=== PATIENT | female | born 1955 | race Caucasian/White ===

== ENCOUNTER → 2017-08-10 | Outpatient (CLI) | payer OTHER ==
[~2017-08-10] MED LIST: CHOL1CAP24 PO; HYDR-3516 PO; PRIL20TA2 PO; ZOFR4TAB PO
[2017-08-10 11:21] LABS: BASOPHIL % 0.3 % (0.0-2.0); EOSINOPHIL # 0.1 TH/MM3 (0-0.4); EOSINOPHIL % 1.5 % (0.0-4.0); HEMATOCRIT 41.3 % (35.0-46.0); HEMOGLOBIN 13.7 GM/DL (11.6-15.3); LYMPH % 35.6 % (9.0-44.0); MEAN CELL VOLUME 92.9 FL (80.0-100.0); MEAN CORPUSCULAR HEMOGLOBIN 30.9 PG (27.0-34.0); MEAN CORPUSCULAR HGB CONC 33.3 % (32.0-36.0); MEAN PLATELET VOLUME 11.1 FL (7.0-11.0); MONOCYTE # 0.6 TH/MM3 (0-0.9); NEUT % 51.6 % (16.0-70.0); PLATELET COUNT 204 TH/MM3 (150-450); RED BLOOD COUNT 4.45 MIL/MM3 (4.00-5.30); WHITE BLOOD COUNT 5.7 TH/MM3 (4.0-11.0)
[2017-08-10 12:08] LABS: ALBUMIN 3.9 GM/DL (3.4-5.0); AST (GOT) 21 U/L (15-37); BICARBONATE 29.5 MEQ/L (21.0-32.0); BLOOD UREA NITROGEN 14 MG/DL (7-18); CALCIUM 9.3 MG/DL (8.5-10.1); CHLORIDE 104 MEQ/L (98-107); CREATININE 1.01 MG/DL (0.50-1.00); GLOMERULAR FILTRATION RATE 56 ML/MIN (>89); GLUCOSE,FASTING 85 MG/DL (74-99); SODIUM (NA) 140 MEQ/L (136-145)
[2017-08-10 12:09] LABS: ALT (GPT) 28 U/L (10-53)
[2017-08-10 12:12] LABS: ALKALINE PHOSPHATASE 61 U/L (45-117); TOTAL BILIRUBIN ADULT 0.4 MG/DL (0.2-1.0); TOTAL PROTEIN 7.5 GM/DL (6.4-8.2)
--- NOTE | 2017-08-10 14:51 | EKG ---
Date Performed: 08/10/2017 Time Performed: 10:34:18 PTAGE: 62 years EKG: Sinus rhythm . Poor R wave progression Nonspecific ST-T wave changes Low QRS voltages in precordial leads Borderli ne ECG NO PREVIOUS TRACING DOCTOR: Edvin Rizzo Interpretating Date/Time 08/10/2017 14:50:02
== END ==
LOC: CPRE 10:11
PROVIDERS: ATTEND Orthopaedic Surgery
DX: Z01.812 Encounter for preprocedural laboratory examination (principal); Z01.810 Encounter for preprocedural cardiovascular examination; R94.31 Abnormal electrocardiogram [ECG] [EKG]
CPT/HCPCS: 36415; 80053; 85025; 93005

== ENCOUNTER → 2017-08-17 | Day surgery (SDC) | payer OTHER ==
[~2017-08-17] VITALS: Ht 165.1 cm; Wt 98.2 kg
[~2017-08-17] MED LIST changes: +ACETAMINOPHEN/HYDROcodone 325 MG/5 MG TAB PO PRN; +CHLORHEXIDINE GLUCONATE 2 % 1 PACK (2 CLOTHS) TOPICAL PRN; +DEXAMETHASONE SOD PHOS 4 MG/ML VIAL IV ONE; +DO NOT ADM ANY ANTICOAGULANT DRUGS PRN; +KETOROLAC TROMETHAMINE 30 MG/ML (IVP) VIAL IVP ONE; +LACTATED RINGER'S 1000 ML IV PRN; +LIDOCAINE HCL 1% PF 5 ML SYRINGE OTHER ONE; +METOPROLOL TARTRATE 25 MG TAB PO PRN; +MIDAZOLAM HCL 2 MG/2 ML VIAL ONE; +MORPHINE SULFATE 4 MG/ML INJ IV PUSH PRN; +ONDANSETRON HCL 4 MG/2 ML VIAL IV ONE; +ONDANSETRON HCL 4 MG/2 ML VIAL IV PUSH PRN; +POVIDONE IODINE 5% (ANTISEPSIS KIT) 4 APPLICATIONS EACH NARE PRN; +POVIDONE IODINE 7.5% SCRUB 118 ML BOTTLE TOPICAL SCH; +PROPOFOL 200 MG/20 ML AMP IV ONE; +SODIUM CHLORID 0.9% 500 ML IV PRN; +ceFAZolin 2 GM PREMIX 50 ML IV SCH
[2017-08-17 16:00] VITALS: BP 123/71; PULSE 72; RESP 16; TEMP 98.4; O2SAT 96
--- NOTE | 2017-08-18 20:42 | MP ---
cc: FAHEEM BO DATE OF SURGERY 08/17/17 PREOPERATIVE DIAGNOSIS 1. Complex tear lateral meniscus left knee 2. Osteoarthritis left knee POSTOPERATIVE DIAGNOSIS 1. Complex tear lateral meniscus left knee 2. Osteoarthritis left knee OPERATIVE PROCEDURE Arthroscopic surgery left knee consisting of 1) partial lateral meniscectomy, 2) chondroplasty SURGEON Dr. Jason Bo ANESTHESIA General TECHNIQUE After induction of general anesthesia, the left lower extremity was placed in a leg ramos with a tourniquet underneath. The left lower extremity was thoroughly prepped with alcohol and ChloraPrep and draped in routine fashion. After application of Esmarch bandage, tourniquet inflated to 300 mmHg. A cannula introduced through a stab incision inferolateral portal. Joint filled with fluid and an irrigation cannula established superomedially. Accessory portal established medially after needling systematic visualization joint was carried out. 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 Patellofemoral tracking was good. 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 ACL was intact, medial meniscus and medial joint compartment intact. Lateral compartment was filled with torn pieces of lateral meniscus involving the entire mid third and anterior third. Using 3.8 mm open-ended cutter and ArthroCare system, meniscectomy was carried out effectively removing most of the lateral meniscus except for the posterior 40% of it which is intact and well attached. The meniscus was appropriately balanced. Chondroplasty of the patella and the medial joint compartment was carried out using the ArthroCare system. The joint was irrigated with saline solution followed by closure of the portals with single vertical mattress 3-0 nylon sutures. Dressings applied with Xeroform, 4x4s, ABD, Sof-Rol, Alec bandage. The patient transferred to recovery room in satisfactory condition. The patient tolerated the procedure well. TRANSFUSIONS AND COMPLICATIONS None. POSTOPERATIVE CONDITION Satisfactory PROGNOSIS Good. As skeptical as I was as far as her prognosis, I think the findings indicate that she will make significant recovery, especially her lack of terminal extension. The lateral compartment did show chondromalacia but no exposed bone. Faheem Bo MD / /2:52 PM /8:31 PM
== END | disposition home or self-care (01) ==
LOC: HSDC 10:34 → EDUNIT# 13:00
PROVIDERS: ATTEND Orthopaedic Surgery
DX: S83.272A Complex tear of lateral meniscus, current injury, left knee, initial encounter (principal); M17.12 Unilateral primary osteoarthritis, left knee
CPT/HCPCS: 01400; 29881; J0690; J1100; J1885; J2250; J2405; J3010; J7120